=== PATIENT | female | born 1960 ===

== ENCOUNTER 2021-11-25 08:16 | Outpatient (CLI) | payer OTHER ==
[2021-11-25 09:34] LABS: Blood Urea Nitrogen 19 mg/dL (7-17)
--- NOTE | 2021-11-25 10:42 | Cat Scan Report ---
CTA CHEST WITH CONTRAST INDICATION / CLINICAL INFORMATION: R06.02 SOB. TECHNIQUE: Axial CT images were obtained through the chest after injection of 100 cc of Omnipaque 350 IV contrast. 3 plane MIP and/or 3D reconstructions were produced. All CT scans at this location are performed using CT dose reduction for ALARA by means of automated exposure control. COMPARISON: None available. FINDINGS: PULMONARY EMBOLUS: None. THORACIC AORTA: No significant abnormality. HEART: No significant abnormality. CORONARY ARTERY CALCIFICATION: Absent -- None. MEDIASTINUM / RADHA: No significant abnormality. PLEURA: No pleural effusion. No pneumothorax. LUNGS: No acute air space or interstitial disease. There is mild elevation or eventration of the post erior right hemidiaphragm with mild compressive atelectasis in the right lower lobe. No suspicious pu lmonary nodule or mass. ADDITIONAL FINDINGS: None. UPPER ABDOMEN: No acute findings. SKELETAL STRUCTURES: No significant osseous abnormality. IMPRESSION: 1. No CT evidence for pulmonary embolism. 2. No acute findings. 3. Elevated or eventrated right hemidiaphragm as described. Signer Name: Cl Ott Jr, MD Signed: 11/25/2021 10:38 AM Workstation Name: [id number]
== END 2021-11-25 08:17 | disposition home or self-care (01) ==
LOC: CATHLABREC 08:16 → CT 08:16
PROVIDERS: ATTEND Internal Medicine Cardiovascular Disease
DX: J98.11 Atelectasis (principal)
CPT/HCPCS: 36415; 71275; 82565; 84520; Q9967